=== PATIENT | female | born 1995 | race Caucasian/White ===

== ENCOUNTER 2021-04-28 21:33 | Emergency (ER) | payer MEDICAID ==
[~2021-04-28] VITALS: Ht 172.7 cm; Wt 65.8 kg
[2021-04-28 21:47] VITALS: BP_SYST 71
--- NOTE | 2021-04-28 21:50 | NUR ---
TO LOBBY A/W BED AMBULATORY
--- NOTE | 2021-04-28 22:32 | NUR ---
Dr. Thomas examining patient.
--- NOTE | 2021-04-28 22:35 | NUR ---
PT TAKEN TO BED 8
--- NOTE | 2021-04-28 22:36 | NUR ---
Female Strategic Debriefing Officer accompanied female patient for BREAST Exam.
--- NOTE | 2021-04-28 22:36 | NUR ---
26 YO/F BIB SELF W C/O OF POSSIBLE SPIDER BITE TO L FOREARM X4 DAYS W ACHEING PAIN 6/10 CONSTANT, + BLISTER ON R NIPPLE S/P PIERCING INSERTION. PT DENIES ANY FEVERS, N/V/D. RED CIRCULAR REDNESS NOTED TO L FOREARM W CENTER SCAB, NO SWELLING, SKIN WARM AND DRY. SENSATION PRESENT, PT REPORTS SOME EPISODE ON TINGLING SENSATION. +ROM. 1 BLISTER NOTED TO R AREOLA CLOSED AT THIS TIME NOT DRAINING, NO REDNESS OR OTHER SWELLING NOTED. VSS. PT STANDING AT BEDSIDE. BREATHING EVEN AND UNLABORED. NAD NOTED, WILL CONTINUE TO MONITOR. PMH:DENIES NKA
[2021-04-28] MEDS ORDERED: SULF-59 PO (22:55)
[2021-04-28 23:14] VITALS: BP 123/61
== END 2021-04-28 23:13 | disposition home or self-care (01) ==
LOC: MED 21:33
DX: L03.114 Cellulitis of left upper limb (principal); N61.1 Abscess of the breast and nipple
CPT/HCPCS: 81002; 81025; 99283